=== PATIENT | female | born 1990 ===

== ENCOUNTER 2022-08-01 02:35 | Inpatient (IN) | payer OTHER ==
[2022-08-01] MEDS ORDERED: ELECTROLYTE-148 SOLN 500 ML IV ONE (03:30)
[2022-08-01] MEDS ORDERED: ELECTROLYTE-148 SOLN 1,000 ML IV SCH (04:30)
[2022-08-01 04:53] LABS: HEMATOCRIT 22.2 % (32.4-45.2); HEMOGLOBIN 7.4 GM/dL (10.7-15.3); MCH 26.7 pg (25.7-33.7); MCHC 33.2 g/dl (32.0-36.0); MEAN CELL VOLUME 80.5 fl (80-96); MEAN PLT VOLUME 8.5 fl (7.5-11.1); PLATELET COUNT 144 10^3/uL (134-434); RBC 2.76 M/mm3 (3.60-5.2); WHITE BLOOD COUNT 8.1 K/mm3 (4.0-10.0)
[2022-08-01 05:07] LABS: ALBUMIN 1.9 g/dl (3.4-5.0); BLOOD UREA NITROGEN 13.2 mg/dL (7-18); CALCIUM 7.5 mg/dL (8.5-10.1)
[2022-08-01 05:10] LABS: INR 0.96 (0.83-1.09)
[2022-08-01 05:11] LABS: CREATININE 0.6 mg/dL (0.55-1.3)
[2022-08-01 05:12] LABS: BILIRUBIN,TOTAL 0.4 mg/dL (0.2-1); TOT PROT 5.1 g/dl (6.4-8.2)
[2022-08-01 05:13] LABS: ACTIVATED PTT 27.4 SECONDS (25.2-36.5)
[2022-08-01 06:39] LABS: HEPATITIS B SURFACE AG MATERN NON-REACTIVE (NONREACTIVE); SYPHILIS W/ RPR CONF NON-REACTIVE (NONREACTIVE)
[2022-08-01 07:08] LABS: HIV INTERPRETATION NEGATIVE (NEGATIVE)
[2022-08-01 09:13] LABS: EPI CELLS 13 /uL (0-25.1); HYALINE CASTS 0 /uL (0-3.1); METHADONE, UR NEGATIVE (NEGATIVE); URINE AMPHETAMINES NEGATIVE (NEGATIVE); URINE APPEARANCE CLEAR; URINE BACTERIA >9,000 /uL (0-1359); URINE BILIRUBIN NEGATIVE (NEGATIVE); URINE COLOR YELLOW; URINE GLUCOSE (UA) NEGATIVE (NEGATIVE); URINE KETONE NEGATIVE (NEGATIVE); URINE LEUK ESTERASE TRACE (NEGATIVE); URINE NITRITE POSITIVE (NEGATIVE); URINE PROTEIN NEGATIVE (NEGATIVE); URINE RBC 3 /uL (0-23.9); URINE WBC 10 /uL (0-25.8)
[2022-08-01 09:15] LABS: OPIATES, URI NEGATIVE (NEGATIVE); PHENCYCLIDINE,URINE NEGATIVE (NEGATIVE); URINE BARBITURATES NEGATIVE (NEGATIVE); URINE BENZODIAZEPINES NEGATIVE (NEGATIVE)
[2022-08-01 09:20] LABS: COCAINE, UR POSITIVE (NEGATIVE)
[2022-08-01] MEDS ORDERED: CEFTRIAXONE 1 GM in DEXTROSE 5%-WATER - 50 ML IVPB SCH (10:00)
[2022-08-01] MEDS ORDERED: DEXTROSE 5%-LACTATED RINGERS 1,000 ML IV SCH (10:15)
[2022-08-01] MEDS ORDERED: ACETAMINOPHEN 1000 MG/100 ML BAG IVPB ONE (11:16)
[2022-08-01 11:30] LABS: ANISOCYTOSIS 1+; MACROCYTOSIS 0
[2022-08-01] MEDS ORDERED: ACETAMINOPHEN INJECTION 100 ML IVPB ONE (12:06)
[2022-08-01 12:36] VITALS: BMI 27.4
[2022-08-01 18:00] VITALS: BP 81/40; PULSE 50; RESP 17
[2022-08-01 18:13] VITALS: TEMP 97.9
[2022-08-03] MEDS ORDERED: LORazepam 2 MG TABLET PO SCH (06:00)
== END 2022-08-01 19:10 | disposition short-term general hospital (02) | DRG 566 ==
LOC: JDEL 02:35 → JLDR 09:25
PROVIDERS: ADMIT Obstetrics & Gynecology; ATTEND Obstetrics & Gynecology
DX: O23.03 Infections of kidney in pregnancy, third trimester (principal); Z3A.34 34 weeks gestation of pregnancy; O99.323 Drug use complicating pregnancy, third trimester; F19.20 Other psychoactive substance dependence, uncomplicated
CPT/HCPCS: 36415; 76775-TC; 76819-TC; 80053; 80307; 81003; 85025; 85610; 85730; 86762; 86780; 86850; 86900; 86901; 87086; 87186; 87340; 87389; 87491; 87591; C9803-CS; U0003; U0005

== ENCOUNTER 2022-08-02 18:50 | Inpatient (IN) | payer OTHER ==
[2022-08-02] MEDS ORDERED: ELECTROLYTE-148 SOLN 1,000 ML IV SCH (20:30)
[2022-08-02] MEDS ORDERED: OXYTOCIN 10 UNITS/ML VIAL ONE (21:58)
[2022-08-02] MEDS ORDERED: LIDOCAINE HCL 1% PRESERVATIVE FREE - 30ML VIAL ONE (21:58)
[2022-08-02 22:12] LABS: BASO % 0.1 % (0-2.0); EOS % 0.1 % (0-4.5); HEMATOCRIT 26.1 % (32.4-45.2); HEMOGLOBIN 8.8 GM/dL (10.7-15.3); LYMPH % 6.6 % (8-40); MCH 26.9 pg (25.7-33.7); MCHC 33.6 g/dl (32.0-36.0); MEAN CELL VOLUME 80.1 fl (80-96); MEAN PLT VOLUME 9.2 fl (7.5-11.1); NEUT % 85.2 % (42.8-82.8); PLATELET COUNT 131 10^3/uL (134-434); RBC 3.26 M/mm3 (3.60-5.2); RDW 14.4 % (11.6-15.6); WHITE BLOOD COUNT 9.5 K/mm3 (4.0-10.0)
[2022-08-02 22:22] LABS: INR 0.92 (0.83-1.09); PROTHROMBIN TIME (PATIENT) 10.6 SEC (9.7-13.0)
[2022-08-02 22:25] LABS: ACTIVATED PTT 25.5 SECONDS (25.2-36.5)
[2022-08-02 22:38] LABS: CALCIUM 7.4 mg/dL (8.5-10.1)
[2022-08-02 22:39] LABS: BLOOD UREA NITROGEN 12.5 mg/dL (7-18)
[2022-08-02 22:42] LABS: CREATININE 0.7 mg/dL (0.55-1.3)
[2022-08-02] MEDS ORDERED: BISACODYL 10 MG SUPP.RECT RC PRN (22:52)
[2022-08-02] MEDS ORDERED: ACETAMINOPHEN 325 MG TABLET (FP) PO PRN (22:52)
[2022-08-02] MEDS ORDERED: IBUPROFEN 600 MG TABLET (FP) PO PRN (22:52)
[2022-08-02] MEDS ORDERED: BENZOCAINE 20% 57 GM BOTTLE TP PRN (22:52)
[2022-08-02] MEDS ORDERED: BENZOCAINE 28 GM HEMORRHOIDAL OINTMENT TP PRN (22:52)
[2022-08-02] MEDS ORDERED: WITCH HAZEL 50% (TUCKS) 40 PAD/JAR PAD TP PRN (22:52)
[2022-08-02] MEDS ORDERED: METHYLERGONOVINE MALEATE 0.2 MG/1 ML AMP IM PRN (22:52)
[2022-08-02] MEDS ORDERED: METHYLERGONOVINE MALEATE 0.2 MG/1 ML AMP IM ONE (22:53)
[2022-08-02] MEDS ORDERED: OXYTOCIN 10 UNITS/ML VIAL IM ONE (22:54)
[2022-08-02 23:31] LABS: URINE BARBITURATES NEGATIVE (NEGATIVE)
[2022-08-02 23:32] LABS: PHENCYCLIDINE,URINE NEGATIVE (NEGATIVE); URINE AMPHETAMINES NEGATIVE (NEGATIVE); URINE BENZODIAZEPINES NEGATIVE (NEGATIVE)
[2022-08-02 23:40] LABS: CORD HCO3 21.4 mmHg (20-29); CORD PCO2 40.6 mmHg (30-78); CORD pH 7.34 (7.14-7.44)
[2022-08-03] MEDS ORDERED: CEPHALEXIN MONOHYDRATE 500 MG CAPSULE (UD) PO SCH
[2022-08-03 00:28] VITALS: RESP 20; TEMP 97.7; BMI 27.4
[2022-08-03 00:32] LABS: COCAINE, UR POSITIVE (NEGATIVE)
[2022-08-03 00:34] LABS: METHADONE, UR POSITIVE (NEGATIVE); OPIATES, URI POSITIVE (NEGATIVE)
[2022-08-03] MEDS ORDERED: CLINDAMYCIN 900 MG PREMIX IVPB 900 MG/50 ML BAG IVPB SCH (02:00)
[2022-08-03 02:25] VITALS: BP 100/69; PULSE 63
[2022-08-03] MEDS ORDERED: LORazepam 1 MG TABLET PO SCH (06:00)
[2022-08-03] MEDS ORDERED: SENNOSIDES/DOCUSATE COMBO (SENNA PLUS) TABLET (UD) PO PRN (22:00)
== END 2022-08-03 01:10 | disposition left against medical advice (07) | DRG 560 ==
LOC: JDEL 18:50 → JLDR 19:55
PROVIDERS: ADMIT Obstetrics & Gynecology; ATTEND Obstetrics & Gynecology
PROC: 10E0XZZ Delivery of Products of Conception, External Approach (ICD-10-PCS; principal; 2022-08-02)
PROC: 10907ZC Drainage of Amniotic Fluid, Therapeutic from Products of Conception, Via Natural or Artificial Opening (ICD-10-PCS; 2022-08-02)
PROC: 0HQ9XZZ Repair Perineum Skin, External Approach (ICD-10-PCS; 2022-08-02)
DX: O98.82 Other maternal infectious and parasitic diseases complicating childbirth (principal); N12 Tubulo-interstitial nephritis, not specified as acute or chronic; O99.324 Drug use complicating childbirth; F11.10 Opioid abuse, uncomplicated; F14.10 Cocaine abuse, uncomplicated; O70.0 First degree perineal laceration during delivery; O77.0 Labor and delivery complicated by meconium in amniotic fluid; O69.81X0 Labor and delivery complicated by cord around neck, without compression, not applicable or unspecified; Z3A.37 37 weeks gestation of pregnancy; Z37.0 Single live birth
CPT/HCPCS: 36415; 36600; 59409; 80048; 80307; 82803; 85025; 85610; 85730; 86780; 86850; 86900; 86901; 88307-TC